=== PATIENT | male | born 1965 | race Caucasian/White ===

== ENCOUNTER 2019-12-30 21:29 | Emergency (ER) | payer OTHER, MEDICAID ==
[~2019-12-30] VITALS: Ht 167.6 cm; Wt 81.6 kg
[2019-12-30 21:57] VITALS: BP 149/89
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
--- NOTE | 2019-12-30 22:21 | NUR ---
DR REA AT BEDSIDE
[2019-12-30] MEDS ORDERED: DEXAMETHASONE SOD PHOSPHATE 10 MG/ML VIAL IM ONE (22:30)
[2019-12-30] MEDS ORDERED: DIPHENHYDRAMINE HCL 12.5 MG/5 ML UDC PO ONE (22:30)
[2019-12-30] MEDS ORDERED: diphenhydrAMINE HCL 50 MG/ML VIAL ONE (22:30)
[2019-12-30] MEDS ORDERED: DEXAMETHASONE SOD PHOSPHATE 10 MG/ML VIAL ONE (22:30)
[2019-12-30] MEDS ORDERED: diphenhydrAMINE HCL ELIX 25 MG/10 ML UDC ONE (22:33)
--- NOTE | 2019-12-30 22:45 | NUR ---
Patient given written and verbal discharge instructions. Patient verbalizes understanding of instructions. Patient is ambulatory with steady gait. Refuses offer of detention placement. Patient given list of available shelters in surrounding area.
== END 2019-12-30 22:47 | disposition home or self-care (01) ==
LOC: ER 21:32
DX: T78.40XA Allergy, unspecified, initial encounter (principal); F17.200 Nicotine dependence, unspecified, uncomplicated; Z98.890 Other specified postprocedural states; X58.XXXA Exposure to other specified factors, initial encounter
CPT/HCPCS: 96372; 99283; J1100; Q0163; J1200